=== PATIENT | male | born 1985 | race Caucasian/White ===

== ENCOUNTER 2016-12-05 23:16 | Emergency (ER) | payer OTHER ==
[2016-12-06] MEDS ORDERED: PREDNISONE 20 MG TABLET PO ONE (01:03)
[2016-12-06] MEDS ORDERED: OXYCODONE-ACETAMINOPHEN 5-325 MG TABLET PO ONE (01:03)
[2016-12-06] MEDS ORDERED: KETOROLAC TROMETHAMINE 60 MG/2 ML SDV IM ONE (01:03)
--- NOTE | 2016-12-06 02:11 | RADIOLOGY REPORT (SQ) ---
EXAM DESCRIPTION: L SPINE WHOLE COMPLETED DATE/TIME: 12/06/2016 1:39 am REASON FOR STUDY: back pain COMPARISON: None. NUMBER OF VIEWS: Five views including obliques. TECHNIQUE: AP, lateral, oblique, and sacral radiographic images acquired of the lumbar spine. LIMITATIONS: None. FINDINGS: MINERALIZATION: Normal. SEGMENTATION: Normal. No transitional anatomy. ALIGNMENT: Normal. VERTEBRAE: Minimal L1 anterior compression deformity. DISCS: Mild disc desiccation between the L4 and S1 levels. POSTERIOR ELEMENTS: Moderate lumbosacral spondylosis. HARDWARE: None in the spine. PARASPINAL SOFT TISSUES: Normal. PELVIS: Intact as visualized. No fractures or worrisome bone lesions. SI joints intact. OTHER: No other significant finding. IMPRESSION: Minimal L1 anterior compression deformity. Mild lower lumbar disc desiccation. Moderat e lumbosacral spondylosis. TECHNICAL DOCUMENTATION: JOB ID: [id number] [employer]- All Rights Reserved
--- NOTE | 2016-12-06 02:37 | ER Document Report ---
ED General - General Chief Complaint: Back Pain Stated Complaint: BACK PAIN Time Seen by Provider: 12/06/16 00:51 TRAVEL OUTSIDE OF THE [place] IN LAST 30 DAYS: No - HPI Patient complains to provider of: Lower back pain Notes: Patient states lower back pain now pain going down his left leg. Patient states back pain initially started approximately 2 weeks ago and has gradually gotten worse now with stabbing pain going down the back of his left leg when he is standing on the left leg. Patient denies any fevers chills nausea vomiting denies any bowel or bladder incontinence denies any numbness or tingling. Patient denies any history of trauma denies any excessive weight lifting. Patient states no fevers. - Related Data Allergies/Adverse Reactions: No Known Allergies Allergy (Unverified 12/05/16 23:30) Past Medical History - Social History Smoking Status: Never Smoker Chew tobacco use (# tins/day): No Frequency of alcohol use: Occasional Drug Abuse: None Family History: Reviewed & Not Pertinent Patient has suicidal ideation: No Patient has homicidal ideation: No Renal/ Medical History: Denies: Hx Peritoneal Dialysis Review of Systems - Review of Systems Constitutional: No symptoms reported EENT: No symptoms reported Cardiovascular: No symptoms reported Respiratory: No symptoms reported Gastrointestinal: No symptoms reported Genitourinary: No symptoms reported Male Genitourinary: No symptoms reported Musculoskeletal: Back pain Skin: No symptoms reported Hematologic/Lymphatic: No symptoms reported Neurological/Psychological: No symptoms reported -: Yes All other systems reviewed and negative Physical Exam - Vital signs Vitals: Temp Pulse Resp BP Pulse Ox 98.4 F 81 18 155/95 H 99 12/05/16 23:24 12/05/16 23:24 12/05/16 23:24 12/05/16 23:24 12/05/16 23:24 Interpretation: Normal - General General appearance: Appears well, Alert - HEENT Head: Normocephalic, Atraumatic Eyes: Normal Pupils: PERRL - Respiratory Respiratory status: No respiratory distress Chest status: Nontender Breath sounds: Normal Chest palpation: Normal - Cardiovascular Rhythm: Regular Heart sounds: Normal auscultation Murmur: No - Abdominal Inspection: Normal Distension: No distension Bowel sounds: Normal Tenderness: Nontender Organomegaly: No organomegaly - Rectal Hemorrhoids: None Notes: Normal rectal tone - Back Back: Normal, Nontender - Extremities General upper extremity: Normal inspection, Nontender, Normal color, Normal ROM , Normal temperature General lower extremity: Normal inspection, Nontender, Normal color, Normal ROM , Normal temperature, Normal weight bearing. No: Anjel's sign - Neurological Neuro grossly intact: Yes Cognition: Normal Orientation: AAOx4 [place] Coma Scale Eye Opening: Spontaneous [place] Coma Scale Verbal: Oriented [place] Coma Scale Motor: Obeys Commands [place] Coma Scale Total: 15 Speech: Normal Motor strength normal: LUE, RUE, LLE, RLE Sensory: Normal Knee - Reflex grade: 2 = Normal - Psychological Associated symptoms: Normal affect, Normal mood - Skin Skin Temperature: Warm Skin Moisture: Dry Skin Color: Normal Course - Re-evaluation Re-evalutation: 12/06/16 02:49 The patient presents with low back pain without signs of spinal cord compression , cauda equina syndrome, infection, aneurysm, or other serious etiology. The patient is neurologically intact. Given the extremely low risk of these diagnoses further testing and evaluation for these possibilities does not appear to be indicated at this time. The patient has been instructed to return if the symptoms worsen or change in any way. Patient's x-ray does show a slight compression deformity of L1. Patient denies any recent trauma. Patient feeling better after ketorolac. Explained patient that we will send him home with pain medication however he would need follow-up with [facility] for more likely an MRI to further delineate the etiology of his back pain - Vital Signs Vital signs: Temp Pulse Resp BP Pulse Ox 98.4 F 81 18 155/95 H 99 12/05/16 23:24 12/05/16 23:24 12/05/16 23:24 12/05/16 23:24 12/05/16 23:24 Discharge - Discharge Clinical Impression: L1 compression Back pain Qualifiers: Back pain location: low back pain Chronicity: unspecified Back pain laterality : left Sciatica presence: with sciatica Sciatica laterality: sciatica of left side Qualified Code(s): M54.42 - Lumbago with sciatica, left side Condition: Good Disposition: HOME, SELF-CARE Instructions: Ice Packs ([facility]), Low Back Pain ([facility]), Oral Narcotic Medication ( [facility]), Stretching Exercises for the Back ([facility]) Additional Instructions: Also look up online stretches for your piriformis muscle. Take medication as prescribed please follow-up with your [facility] provider for further evaluation of your back pain. Prescriptions: Oxycodone HCl 5 mg PO Q6 #30 tablet Prednisone [Deltasone] 60 mg PO DAILY #24 tablet
[2016-12-06 03:01] VITALS: BP 162/87
== END 2016-12-06 02:55 | disposition home or self-care (01) ==
LOC: ER 23:16
DX: G95.20 Unspecified cord compression (principal); M54.5 Low back pain
CPT/HCPCS: 99283; 96372; 72110; J1885; J7512